=== PATIENT | male | born 1985 | race Caucasian/White ===

== ENCOUNTER 2017-06-18 12:58 | Emergency (ER) | payer MEDICAID ==
[~2017-06-18] VITALS: Ht 167.6 cm; Wt 78.5 kg
[2017-06-18 13:05] VITALS: Ht 167.6 cm; Wt 78.5 kg
[2017-06-18 14:13] LABS: BASOPHIL % 0.6 % (0-2); PLATELET COUNT 246 x10^3mcL (130-400); RED CELL DISTRIBUTION WIDTH 12.7 % (11.5-14.5)
[2017-06-18 14:21] LABS: CARBON DIOXIDE 17.1 mmol/L (21-32); CHLORIDE SERUM 101 mmol/L (98-107); CREATININE SERUM 1.4 mg/dL (0.7-1.3); GFR1 > 60 mL/min; GLUCOSE SERUM 206 mg/dL (74-106); SODIUM SERUM 134 mmol/L (136-145)
[2017-06-18 14:25] LABS: ALBUMIN 4.1 g/dL (3.4-5.0); ALKALINE PHOSPHATASE 107 U/L (46-116); ALT/SGPT 225 U/L (16-63); AST/SGOT 135 U/L (15-37); BILIRUBIN TOTAL 1.4 mg/dL (0.20-1.00); LIPASE 146 IU/L (73-393)
[2017-06-18 14:28] LABS: TOTAL PROTEIN, SERUM 8.9 g/dL (6.4-8.2)
[2017-06-18 16:10] VITALS: BP 146/86
[2017-06-19] MEDS ORDERED: ZYRTEC ALLERGY10 MG PO (18:47)
== END 2017-06-18 16:10 | disposition home or self-care (01) ==
LOC: ED 12:58
PROVIDERS: Emergency Medicine
DX: R11.2 Nausea with vomiting, unspecified (principal); F12.10 Cannabis abuse, uncomplicated; F10.10 Alcohol abuse, uncomplicated; R53.1 Weakness; M79.1 Myalgia
CPT/HCPCS: J2405; J3490; J7030

== ENCOUNTER 2017-06-19 15:40 | Inpatient (IN) | payer MEDICAID ==
[~2017-06-19] VITALS: Ht 177.8 cm; Wt 84.4 kg
[2017-06-19 18:35] LABS: PLATELET COUNT 224 x10^3mcL (130-400); RED CELL DISTRIBUTION WIDTH 13.3 % (11.5-14.5)
[2017-06-19] MEDS ORDERED: ZYRTEC ALLERGY10 MG PO (18:47)
[2017-06-19 19:03] LABS: AMPHETAMINE QUAL UR NONE DETECTED (NEG <=1000)
[2017-06-19 19:10] LABS: BASOPHIL % 0 % (0-2)
[2017-06-19 19:21] LABS: CALCIUM 8.5 mg/dL (8.5-10.1); CARBON DIOXIDE 24.2 mmol/L (21-32); CHLORIDE SERUM 103 mmol/L (98-107); GFR1 > 60 mL/min; GLUCOSE SERUM 109 mg/dL (74-106); POTASSIUM SERUM 3.7 mmol/L (3.5-5.1); SODIUM SERUM 139 mmol/L (136-145)
[2017-06-19 19:26] LABS: ALKALINE PHOSPHATASE 98 U/L (46-116); ALT/SGPT 243 U/L (16-63); AST/SGOT 339 U/L (15-37); BILIRUBIN TOTAL 1.5 mg/dL (0.20-1.00)
[2017-06-19 19:28] LABS: TOTAL PROTEIN, SERUM 8.8 g/dL (6.4-8.2)
[2017-06-19 20:14] VITALS: BP 100/72
[2017-06-19 20:17] VITALS: Ht 177.8 cm; Wt 84.4 kg
[2017-06-19 21:40] LABS: T3 TOTAL 1.28 ng/mL
[2017-06-19 21:42] LABS: UA SPECIFIC GRAVITY >=1.030 (1.005-1.035); microscopic required? YES; urine erythrocyte TRACE (NEGATIVE)
[2017-06-19 21:58] LABS: CHOLESTEROL/HDL RATIO 3.5; MAGNESIUM 2.2 mg/dL (1.8-2.4); PHOSPHOROUS 3.2 mg/dL (2.5-4.9)
[2017-06-19 22:21] LABS: FREE T4 1.31 ng/dL (0.76-1.46); FREE THYROXINE INDEX 3.4 ug/dL (1.4-4.5); T4(THYROXINE) 9.2 ug/dL (4.7-13.3)
[2017-06-20 05:19] VITALS: BP 151/79
[2017-06-20 07:51] LABS: BASOPHIL % 0.7 % (0-2); PLATELET COUNT 165 x10^3mcL (130-400); RED CELL DISTRIBUTION WIDTH 13.4 % (11.5-14.5)
[2017-06-20 08:08] LABS: CARBON DIOXIDE 23.6 mmol/L (21-32); CHLORIDE SERUM 106 mmol/L (98-107); CREATININE SERUM 0.9 mg/dL (0.7-1.3); GFR1 > 60 mL/min; GLUCOSE SERUM 123 mg/dL (74-106); MAGNESIUM 1.9 mg/dL (1.8-2.4); PHOSPHOROUS 2.9 mg/dL (2.5-4.9); SODIUM SERUM 143 mmol/L (136-145)
[2017-06-20 10:11] VITALS: BP 119/54
[2017-06-20 13:04] VITALS: BP 127/75
[2017-06-20 13:09] VITALS: BP 127/75
[2017-06-20 17:23] VITALS: BP 124/70
[2017-06-20 20:55] VITALS: BP 120/71
[2017-06-21 05:37] VITALS: BP 136/78
[2017-06-21 06:28] LABS: CALCIUM 8.6 mg/dL (8.5-10.1); CARBON DIOXIDE 24.3 mmol/L (21-32); CHLORIDE SERUM 106 mmol/L (98-107); CREATININE SERUM 0.9 mg/dL (0.7-1.3); GFR1 > 60 mL/min; GLUCOSE SERUM 121 mg/dL (74-106); POTASSIUM SERUM 3.7 mmol/L (3.5-5.1); SODIUM SERUM 141 mmol/L (136-145)
[2017-06-21 06:56] LABS: BASOPHIL % 0.7 % (0-2); PLATELET COUNT 165 x10^3mcL (130-400); RED CELL DISTRIBUTION WIDTH 12.9 % (11.5-14.5)
[2017-06-21 09:56] VITALS: BP 139/63
[2017-06-21 18:07] VITALS: BP 119/78
[2017-06-21 21:45] VITALS: BP 117/68
[2017-06-22 05:33] VITALS: BP 122/74
[2017-06-22 07:02] LABS: BASOPHIL % 0.4 % (0-2); PLATELET COUNT 203 x10^3mcL (130-400); RED CELL DISTRIBUTION WIDTH 12.9 % (11.5-14.5)
[2017-06-22 07:11] LABS: CALCIUM 8.4 mg/dL (8.5-10.1); CARBON DIOXIDE 25.4 mmol/L (21-32); CHLORIDE SERUM 105 mmol/L (98-107); CREATININE SERUM 0.8 mg/dL (0.7-1.3); GFR1 > 60 mL/min; GLUCOSE SERUM 91 mg/dL (74-106); POTASSIUM SERUM 3.6 mmol/L (3.5-5.1); SODIUM SERUM 139 mmol/L (136-145)
[2017-06-22 08:44] VITALS: BP 119/72
[2017-06-22] MEDS ORDERED: THI100 PO (10:29)
[2017-06-22] MEDS ORDERED: FOL1 PO (10:29)
[2017-06-22] MEDS ORDERED: KEFLEX500 M1 PO (10:29)
[2017-06-22] MEDS ORDERED: THE PO (10:30)
[2017-06-22] MEDS ORDERED: LAC PO (10:30)
[2017-06-22 11:56] VITALS: BP 119/72
[2017-06-22 13:44] VITALS: BP 109/71
[2017-06-22] MEDS ORDERED: NAPROXEN375 MG PO (17:42)
== END 2017-06-22 18:11 | disposition home or self-care (01) | DRG 775 ==
LOC: ED 15:40 → DU 18:43
PROVIDERS: Emergency Medicine; Family Medicine; Student in an Organized Health Care Education/Training Program
DX: F10.239 Alcohol dependence with withdrawal, unspecified (principal); N17.0 Acute kidney failure with tubular necrosis; G92 Toxic encephalopathy; M62.82 Rhabdomyolysis; G31.2 Degeneration of nervous system due to alcohol; E83.51 Hypocalcemia; N39.0 Urinary tract infection, site not specified; F12.90 Cannabis use, unspecified, uncomplicated; D72.829 Elevated white blood cell count, unspecified; R74.0 Nonspecific elevation of levels of transaminase and lactic acid dehydrogenase [LDH]; F41.1 Generalized anxiety disorder; F17.210 Nicotine dependence, cigarettes, uncomplicated; E87.6 Hypokalemia; R31.9 Hematuria, unspecified; G89.29 Other chronic pain; M54.9 Dorsalgia, unspecified
CPT/HCPCS: 83880; 84439; 90658; G0480; J0696; J2060; J3230; J7030; Q0092